=== PATIENT | male | born 1970 | race Caucasian/White ===

== ENCOUNTER 2017-08-27 11:04 | Emergency (ER) | payer SELFPAY ==
[~2017-08-27] VITALS: Ht 175.3 cm; Wt 99.8 kg
[2017-08-27 11:15] VITALS: Ht 175.3 cm; Wt 99.8 kg
[2017-08-27 13:04] VITALS: BP 138/79
== END 2017-08-27 13:04 | disposition home or self-care (01) ==
LOC: ED 11:04
DX: S32.019A Unspecified fracture of first lumbar vertebra, initial encounter for closed fracture (principal); W11.XXXA Fall on and from ladder, initial encounter; Y93.89 Activity, other specified; Y92.89 Other specified places as the place of occurrence of the external cause; Y99.8 Other external cause status
CPT/HCPCS: J1885